=== PATIENT | male | born 1940 | race Caucasian/White ===

== ENCOUNTER 2018-04-04 16:40 | Inpatient (IN) | payer OTHER, MEDICAID ==
[~2018-04-04] VITALS: Ht 172.7 cm; Wt 70.3 kg
--- NOTE | 2018-04-04 17:15 | NUR ---
PT SENT BY DR. SANTIAGO, POSS UTI SYMPTOMS. LIVES IN ASSISTED LIVING, PT IS AAOX4, NOT IN RESPIRATORY DISTRESS, V/S STABLE, KEPT RESTED AND COMFORTABLE.
--- NOTE | 2018-04-04 17:50 | NUR ---
PT LABS DRAWNED, URINE COLLECTED AND SENT TO LAB. AWAITING RESULTS.
[2018-04-04 18:06] LABS: APPEARANCE,URINE Clear (CLEAR); BILIRUBIN,URINE Negative (NEGATIVE); BLOOD, URINE Negative Ery/uL (NEGATIVE); COLOR,URINE Yellow (YELLOW); KETONES,URINE 15 (NEGATIVE); LEUKOCYTE ESTERASE ,URINE Negative (NEGATIVE); NITRITE, URINE Negative (NEGATIVE); PROTEIN,URINE Trace mg/dl (NEGATIVE); UGLUCOSE Negative (NEGATIVE)
[2018-04-04 18:06] LABS: BASOPHILS # (AUTO) 0.1 /CMM (0.0-0.2); BASOPHILS % (AUTO) 1.1 % (0.0-2.0); EOSINOPHILS % (AUTO) 9.6 % (0.0-6.0); HEMATOCRIT 34 % (39-51); HEMOGLOBIN 11.3 g/dL (13.5-17.5); LYMPHOCYTES # (AUTO) 1.2 /CMM (0.8-4.8); LYMPHOCYTES % (AUTO) 22.9 % (20.0-44.0); MEAN CORPUSCULAR HGB CONC 33 g/dl (31.0-36.0); MEAN CORPUSCULAR VOLUME 96 fL (80-96); MONOCYTES # (AUTO) 0.6 /CMM (0.1-1.30); MONOCYTES % (AUTO) 11.5 % (2.0-12.0); NEUTROPHILS # (AUTO) 2.9 /CMM (1.8-8.9); NEUTROPHILS % (AUTO) 54.9 % (43.0-81.0); PLATELET COUNT (AUTO) 193 /CMM (150-450); RED BLOOD CELL COUNT(AUTO) 3.54 MIL/uL (4.5-6.0); WHITE BLOOD COUNT (AUTO) 5.3 K/uL (4.3-11.0)
--- NOTE | 2018-04-04 18:07 | NUR ---
RADIOLOGY AT BEDSIDE FOR XRAY.
[2018-04-04 18:19] LABS: CALCIUM, SERUM 8.3 mg/dL (8.5-10.1); CARBON DIOXIDE 27 mmol/L (21-32); CHLORIDE 108 mmol/L (98-107); CREATININE 1.5 mg/dL (0.6-1.3); GLUCOSE 95 mg/dL (74-106); POTASSIUM 4.9 mmol/L (3.5-5.1); SODIUM SERUM 143 mmol/L (136-145); UREA NITROGEN, BLOOD 26 mg/dL (7-18)
[2018-04-04 18:22] LABS: ALANINE AMINOTRANSFERASE 15 U/L (12-78); ALKALINE PHOSPHATASE 145 U/L (46-116); ASPARTATE AMINOTRANSFERASE 14 U/L (15-37); BILIRUBIN,DIRECT 0.1 mg/dL (0.0-0.2); BILIRUBIN,TOTAL 0.4 mg/dL (0.2-1.0); TOTAL PROTEIN, SERUM 6.9 g/dL (6.4-8.2)
[2018-04-04] MEDS ORDERED: ASPIRIN 81 MG TAB.CHEW PO ONE (19:00)
[2018-04-04] MEDS ORDERED: ASPIRIN 81 MG TAB.CHEW ONE (19:04)
--- NOTE | 2018-04-04 19:06 | NUR ---
AWAITING FAMILY MEMBER FOR CAMPUS RECEPTIONIST.
--- NOTE | 2018-04-04 19:14 | NUR ---
PONY ROLL FINISHER AT BEDSIDE FOR EVAL.
--- NOTE | 2018-04-04 19:22 | NUR ---
ENDORSED TO CHAO COLE DEAN.
--- NOTE | 2018-04-04 19:22 | NUR ---
RECEIVED REPORT FROM MACARIO GUIDRY FOR DEAN
--- NOTE | 2018-04-04 19:44 | NUR ---
DR. GONZALES AT BEDSIDE WITH FAMILY TO DISCUSS CARE
[2018-04-04] MEDS ORDERED: LOSA50TA39 PO (20:58)
[2018-04-04] MEDS ORDERED: SENN-168 PO (20:58)
[2018-04-04] MEDS ORDERED: CARV3.122 PO (20:58)
[2018-04-04] MEDS ORDERED: FAMO20TA8 PO (20:58)
[2018-04-04] MEDS ORDERED: FLUO-120 PO (20:58)
[2018-04-04] MEDS ORDERED: CLOP75TA15 PO (20:58)
[2018-04-04] MEDS ORDERED: LEVO25TA7 GT (20:58)
[2018-04-04] MEDS ORDERED: ATOR80TA PO (20:58)
[2018-04-04] MEDS ORDERED: DIPH25PI2 IV (20:58)
[2018-04-04] MEDS ORDERED: ASPI-605 PO (20:58)
--- NOTE | 2018-04-04 21:51 | NUR ---
PT RESTING COMFORTABLY IN BED. VITAL SIGNS STABLE. PT STILL ON CONTINUOUS DEPUTY PROBATION OFFICER. WILL CONTINUE TO MONITOR
--- NOTE | 2018-04-04 23:48 | NUR ---
GAVE REPORT TO RUSSELL GUIDRY FOR DEAN
[2018-04-05] VITALS (8 sets, daily range): BP systolic 120–158; BP diastolic 51–69
--- NOTE | 2018-04-05 00:05 | NUR ---
TRANSFERRED PT PER [facility]S PROTOCOL
[2018-04-05] MEDS ORDERED: MORPHINE SULFATE INJ 2 MG/ML DISP.SYRIN IV PRN (01:00)
[2018-04-05] MEDS ORDERED: NITROGLYCERIN 0.4 MG/TAB BOTTLE SL PRN (01:00)
--- NOTE | 2018-04-05 01:00 | NUR ---
tele/rn notes RECEIVED PATIENT NEW ADMIT FROM ER ARRIVED ON A GURNEY. WITH FWW, WITH HEARING AID AND UPPER AND LOWER DENTURE, HEARING AID NOT PLACED ON, [place], CAN READ LIPS, BODY CHECK DONE , NOTED DISCOLORATION ON LEFT FOREARM, AND RIGHT HAND, WITH REDBESS ON SACRAL AREA. PHOTOGRAPHS TAKEN ON LFA AND RIGHT HAND AT THIS TIME, HEELS REDNESS, ELEVATE AND TOOK PICTURES, ON TELE MONITOR, APACING IN 68. B/P CHECK ELEVATE AT 1567/57, AFEBRILE, SKIN COOL TO TOUCH, TEMPERATURE AT 98.1, DENIES PAIN, PULSE AT 68. ON RA AT 98 % SATURATION, NOTED COUGHING OUT PHLEGM. ADMITTED TO R/O UTI, ALERT, ORIENTED X2, FORGETFUL, UNABLE TO REMEMBER RECENT EVENTS BUT ABLE TO STATE RECEIVED FLU AND PNA VACCINE. LIVES IN ASSISTED LIVING. SKIN DRY. BODY CHECK, BELONGINGS CHECK AND RECONCILED WITH BEHAVIORAL HEALTH PROFESSIONAL. MD ORDERS, HOME MEDS REPORTED.WILL MONITOR.
--- NOTE | 2018-04-05 01:01 | NUR ---
TELE/RN NOTES NO PAIN REPORTED OR OBSERVED, EKG REPORT RESULT LEFT BUNDLE BRANCH BLOCK, APACING, 72, WILL CONTINUE TO MONITOR, CHEST XRAY MILD LEFT ATELECTASIS ON LEFT LOWER LUNG.
--- NOTE | 2018-04-05 04:28 | NUR ---
TELE/RN NOTES PROVIDED WATER TO DRINK AND PUDDING FOR SNACK, PATIENT, VERBALIZED FEELING HUNGRYA ND THIRSTY
--- NOTE | 2018-04-05 06:32 | NUR ---
328-1 TELE/RN NOTES PATIENT ABLE TO VERBALIZE NEEDS, RESPIRATIONS EVEN AND UNLABORED, NO PAIN REPORTED, SLEPT INTERMITENTLY,CALLLIGHTSA WITHI REACH, BED LOCKED, WILL MONITOR.
--- NOTE | 2018-04-05 07:20 | NUR ---
GARNISHMENT SPECIALIST OPENING NOTES PT AWAKE A/O X3 , RESPIRATIONS EVEN AND UNLABORED ON ROOM AIR , NO CHEST PAIN REPORTED, ON MONITOR: A PACING WITH HR 62. CALL LIGHT WITHIN REACH, BED LOCKED, WILL CONTINUE TO MONITOR.
[2018-04-05] MEDS ORDERED: LEVOTHYROXINE SODIUM 25 MCG TABLET GT SCH (07:30)
[2018-04-05] MEDS: LOSARTAN POTASSIUM 50 MG TABLET PO SCH (08:13)
[2018-04-05] MEDS: ASPIRIN EC 81 MG TABLET.DR PO SCH (08:13)
[2018-04-05] MEDS: CLOPIDOGREL BISULFATE 75 MG TABLET PO SCH (08:13)
[2018-04-05] MEDS: CARVEDILOL 3.125 MG TABLET PO SCH ×2 (08:14→17:45)
[2018-04-05] MEDS: FLUOXETINE HCL 20 MG CAPSULE PO SCH (08:14)
--- NOTE | 2018-04-05 15:00 | NUR ---
PT PULLED OUT IV . PT HAS NO IV FLUIDS /MEDS. MADE AWARE DR. SAGE. PER OK TO HAVE THIS PATIENT WITH NO IV ACCESS
--- NOTE | 2018-04-05 19:37 | NUR ---
PT AWAKE A/O X3 , RESPIRATIONS EVEN AND UNLABORED ON ROOM AIR , NO CHEST PAIN REPORTED, ON MONITOR: A PACING WITH HR 62-65.ALL NEEDS ATTENDED. CALL LIGHT WITHIN REACH, BED LOCKED AND LOWEST POSITION. WILL ENDORSE TO NEXT SHIFT FOR DEAN.
--- NOTE | 2018-04-05 19:45 | NUR ---
POWERHOUSE LABORER NOTES RECEIVED ON BED WITH HOB ELEVATED.WITH HARD OF HEARING ON BOTH EARS,WITH HEARING AID X2.NO IV ACCESS,OK WITH MD PER REPORT BY DAY NURSE JURGEN.NOTED SKIN DISCOLORATION ON RIGHT HAND.DENIES CHEST PAIN.CALL LIGHT IN REACH,NEEDS ANTICIPATED.
[2018-04-06] VITALS (7 sets, daily range): BP systolic 73–154; BP diastolic 40–72
--- NOTE | 2018-04-06 01:00 | NUR ---
DIFFUSION FURNACE OPERATOR NOTES SLEEPING,KEPT WARM AND COMFORTABLE.
--- NOTE | 2018-04-06 05:13 | NUR ---
BI LEAD NOTES REFUSED BLOOD PRESSURE CHECK ON STANDING POSITION.
--- NOTE | 2018-04-06 06:20 | NUR ---
AUTO BODY MECHANIC NOTES A-PACING 67 ON TELE MONITOR,SLEPT THRU OUT SHIFT.NO CHEST PAIN,URINE FOR ANALYSIS COLLECTED,SENT TO LAB.STILL NO IV ACCESS.CALL LIGHT IN REACH,NEEDS ATTENDED,IN NO ACUTE DISTRESS.WILL ENDORSE TO DAY NURSE FOR DEAN.
[2018-04-06 06:25] LABS: BASOPHILS # (AUTO) 0.1 /CMM (0.0-0.2); BASOPHILS % (AUTO) 1.2 % (0.0-2.0); HEMATOCRIT 35 % (39-51); HEMOGLOBIN 11.5 g/dL (13.5-17.5); LYMPHOCYTES # (AUTO) 1.3 /CMM (0.8-4.8); LYMPHOCYTES % (AUTO) 20.6 % (20.0-44.0); MEAN CORPUSCULAR HGB CONC 34 g/dl (31.0-36.0); MEAN CORPUSCULAR VOLUME 94 fL (80-96); MONOCYTES # (AUTO) 0.7 /CMM (0.1-1.30); MONOCYTES % (AUTO) 11.1 % (2.0-12.0); NEUTROPHILS # (AUTO) 3.4 /CMM (1.8-8.9); NEUTROPHILS % (AUTO) 56.1 % (43.0-81.0); PLATELET COUNT (AUTO) 189 /CMM (150-450); RED BLOOD CELL COUNT(AUTO) 3.67 MIL/uL (4.5-6.0); WHITE BLOOD COUNT (AUTO) 6.1 K/uL (4.3-11.0)
[2018-04-06 06:36] LABS: CHOLESTEROL 129 mg/dL (<200); HDL CHOLESTEROL 51 mg/dL (40-60); LDL 71 mg/dL (0-99); TRIGLYCERIDES 64 mg/dL (30-150)
--- NOTE | 2018-04-06 06:39 | NUR ---
CYCLING INSTRUCTOR NOTES NEW SALINE LOCK PLACE ON RFA #22.
[2018-04-06 06:47] LABS: CALCIUM, SERUM 8.5 mg/dL (8.5-10.1); CARBON DIOXIDE 26 mmol/L (21-32); CHLORIDE 108 mmol/L (98-107); CREATININE 1.3 mg/dL (0.6-1.3); GLUCOSE 93 mg/dL (74-106); MAGNESIUM 1.9 mg/dL (1.8-2.4); PHOSPHORUS 3.7 mg/dL (2.5-4.9); POTASSIUM 4.9 mmol/L (3.5-5.1); SODIUM SERUM 141 mmol/L (136-145); UREA NITROGEN, BLOOD 25 mg/dL (7-18)
--- NOTE | 2018-04-06 07:40 | NUR ---
DRILL FOREMAN OPENING NOTES RECEIVED PT FROM NIGHTSHIFT RN IN STABLE CONDITION. PT IS A/O X3. NO SOB OR ACUTE SIGNS OF DISTRESS NOTED. BREATHING IS EVEN AND UNLABORED. PT ON RA AND SATING WELL. HE DENIES ANY PAIN AT THIS TIME. NO REPORTS OF CHEST PAIN NOTED. PT IS CURRENTLY A-PACING ON THE TELE MONITOR WITH A CURRENT HR OF 71. IV TO RIGHT FA NOTED TO BE PATENT AND INTACT. NO REDNESS OR SIGNS OF INFILTRATION NOTED. BED IN LOW LOCKED POSITION, SIDE RAILS UP X2, CALL LIGHT WITHIN REACH. WILL CONTINUE TO MONITOR
[2018-04-06 07:49] LABS: CREATININE, URINE 34.2 MG/DL (30.0-125.0)
[2018-04-06] MEDS: LEVOTHYROXINE SODIUM 25 MCG TABLET PO SCH (09:23)
[2018-04-06] MEDS: CLOPIDOGREL BISULFATE 75 MG TABLET PO SCH (09:23)
[2018-04-06] MEDS: FLUOXETINE HCL 20 MG CAPSULE PO SCH (09:23)
[2018-04-06] MEDS: LOSARTAN POTASSIUM 50 MG TABLET PO SCH (09:23)
[2018-04-06] MEDS: CARVEDILOL 3.125 MG TABLET PO SCH ×2 (09:24→17:00)
[2018-04-06] MEDS: ASPIRIN EC 81 MG TABLET.DR PO SCH (09:24)
--- NOTE | 2018-04-06 16:17 | NUR ---
MS RN NOTES: ORTHOSTATIC BP PT'S ORTHOSTATIC BP ARE FOLLOWED SUPINE: 123/48 SITTIN/44 STANDIN/40 DR SAGE NOTIFIED OF RESULTS AND GAVE A TELEPHONE ORDER TO HOLD D/C AND INFUSE THE PT WITH 2L NS EACH AT 100ML/HR AND RECHECK ORTHOSTATICS AFTER THE SECOND BAG. WILL BEGIN INFUSION AND ENDORSE TO NIGHTSHIFT TO INFUSE SECOND BAG AND CHECK ORTHOSTATICS
[2018-04-06] MEDS: IV NS 0.9% 1,000 ML IV PRN (17:18)
--- NOTE | 2018-04-06 18:57 | NUR ---
MS RN CLOSING NOTES PT STABLE AT THIS TIME. ALL NEEDS ANTICIPATED FOR THROUGHOUT SHIFT. ALL DUE MEDS GIVEN. HE DENIES ANY DIZZINESS AT THIS TIME . IV REMAINS PATENT AND INTACT. PT TOLERATING 1ST BAG OF NS WELL. SAFETY MEASURES REMAIN IN PLACE. WILL ENDORSE TO NIGHTSHIFT RN FOR DEAN
--- NOTE | 2018-04-06 19:30 | NUR ---
RECEIVED PATIENT IN BED WITH EYES CLOSED, EASILY AROUSABLE. AO X 2, ABLE TO MAKE NEEDS KNOWN. NO ACUTE DISTRESS NOTED. DENIES ANY PAIN AT THIS TIME. IV SITE PATENT, INTACT; IVF INFUSING ORDERED. SAFETY REMINDERS GIVEN. ON LOW BED WITH BILATERAL UPPER SIDE RAILS UP. CALL MURPHY WITHIN EASY REACH. WILL CONTINUE TO MONITOR.
--- NOTE | 2018-04-07 01:38 | NUR ---
REPORT GIVEN TO NELLY GUIDRY FOR CONTINUITY OF CARE.
--- NOTE | 2018-04-07 01:40 | NUR ---
RECEIVED REPORT FORM RVI, PT STABLE, WILL CONTINUE TO MONITOR
[2018-04-07] MEDS: IV NS 0.9% 1,000 ML IV PRN (03:26)
--- NOTE | 2018-04-07 06:40 | NUR ---
RN MS CLOSING NOTES PT REMAINS IN BED, SLEEPING, EASILY AROUSED TO TOUCH, BREATHING EVEN AND UNLABORED ON RA, NO SOB NOTED. NO COMPLAINT OF PAIN OR DISCOMFORT AT THE TIME. IV ACCESS ON THE R FA#22G WITH NS @100ML/HR. BED IN LOWEST LOCKED POSITION, CALL LIGHT WITHIN REACH AT ALL TIMES, WILL ENDORSE TO DAY NURSE FOR DEAN
--- NOTE | 2018-04-07 07:30 | NUR ---
MS RN OPENING NOTES RECEIVED PT FROM NIGHTSHIFT RN IN STABLE CONDITION. PT IS A/O X3. NO SOB OR ACUTE SIGNS OF DISTRESS NOTED. BREATHING IS EVEN AND UNLABORED. PT ON RA AND SATING WELL. HE DENIES ANY PAIN AT THIS TIME. NO REPORTS OF CHEST PAIN NOTED. IV TO RIGHT FA NOTED TO BE PATENT AND INTACT. NO REDNESS OR SIGNS OF INFILTRATION NOTED. PT TOLERATING SECOND BAG OF NS WELL. WILL RECHECK ORTHOSTATIC BPs DIRECTED BY MD ONCE INFUSION IS COMPLETE. BED IN LOW LOCKED POSITION, SIDE RAILS UP X2, CALL LIGHT WITHIN REACH. WILL CONTINUE TO MONITOR
[2018-04-07 08:00] VITALS: BP 166/79
--- NOTE | 2018-04-07 08:23 | NUR ---
MS RN NOTES: DR SUNSHINE UPDATE/ NEW ORDER UPDATED ON PT'S ORTHOSTATIC BP FROM YESTERDAY AND ORDERS TO INFUSE 2L OF NS. MADE AWARE THAT THE SECOND BAG IS CURRENTLY INFUSING AND WILL RUN FOR THE NEXT 5 HRS. VERBAL ORDERS OBTAINED FROM TO D/C PT'S CARVEDILOL AND CHANGE PT'S COZAAR TO HS RATHER THAN DAILY. ORDERS CARRIED OUT ACCORDINGLY
[2018-04-07] MEDS: ASPIRIN EC 81 MG TABLET.DR PO SCH (08:48)
[2018-04-07] MEDS: FLUOXETINE HCL 20 MG CAPSULE PO SCH (08:49)
[2018-04-07] MEDS: CLOPIDOGREL BISULFATE 75 MG TABLET PO SCH (08:49)
[2018-04-07] MEDS: LEVOTHYROXINE SODIUM 25 MCG TABLET PO SCH (08:49)
--- NOTE | 2018-04-07 15:23 | NUR ---
MS RN NOTES: PLACEMENT F/U PT REFUSING TO GO BACK TO BOARD AND CARE AND STATES THAT HE WOULD RATHER BE PLACED IN A SNF. XIANG THE SOFTBALL UMPIRE MADE AWARE AND STATES THAT PT DOES NOT QUALIFY FOR SNF. AN [facility]DEP[facility] FACILITY WAS ARRANGED BY [facility] FOR THE PT TO GO TO. PT'S SON NOTIFIED BY CM AND MADE AWARE. THE FACILITY IS UNABLE TO ACCEPT THE PT UNTIL TOMORROW AND THEREFOR THE PT WILL STAY ANOTHER NIGHT
[2018-04-07 16:00] VITALS: BP_SYST 141; BP_SYST 150; BP_SYST 156; BP_DIAS 54; BP_DIAS 56; BP_DIAS 64
--- NOTE | 2018-04-07 16:00 | NUR ---
MS NR NOTES: ORTHOSTATIC BP SUPINE 150/64 HR 62 SITTING 156/54 HR 69 STANDING 141/56 HR 77
--- NOTE | 2018-04-07 18:52 | NUR ---
MS RN CLOSING NOTES PT STABLE AT THIS TIME. ALL NEEDS ANTICIPATED FOR THROUGHOUT SHIFT. ALL DUE MEDS GIVEN. HE DENIES ANY DIZZINESS AT THIS TIME . IV REMAINS PATENT AND INTACT. SAFETY MEASURES REMAIN IN PLACE. WILL ENDORSE TO NIGHTSHIFT RN FOR DEAN
--- NOTE | 2018-04-07 19:22 | NUR ---
RN MS OPENING NOTES RECEIVED PT IN BED, SLEEPING, HARD OF HEARING, EASILY AROUSED TO TOUCH, BREATHING EVEN AND UNLABORED ON RA, NO SOB NOTED. NO COMPLAINT OF PAIN OR DISCOMFORT AT THE TIME. IV ACCESS ON THE R FA#22G WITH NS @100ML/HR. BED IN LOWEST LOCKED POSITION, CALL LIGHT WITHIN REACH AT ALL TIMES, WILL CONTINUE TO MONITOR
[2018-04-07 20:00] VITALS: BP 155/50
[2018-04-07] MEDS: LOSARTAN POTASSIUM 50 MG TABLET PO SCH (21:01)
--- NOTE | 2018-04-08 06:10 | NUR ---
RN MS CLOSING NOTES PT REMAINS IN BED, SLEEPING, EASILY AROUSED TO TOUCH, HARD OF HEARING, BREATHING EVEN AND UNLABORED ON RA, NO SOB NOTED. NO COMPLAINT OF PAIN OR DISCOMFORT AT THE TIME. IV ACCESS ON THE R FA#22G SL. BED IN LOWEST LOCKED POSITION, CALL LIGHT WITHIN REACH AT ALL TIMES, AWAITING OFFICIAL PLACEMENT TO [facility], WILL ENDORSE TO DAY NURSE FOR DEAN
--- NOTE | 2018-04-08 07:32 | NUR ---
MS RN OPENING NOTES RECEIVED PATIENT IN STABLE CONDITION. IN NO APPARENT DISTRESS. BEDSIDE RAILS ARE UPX2. BED IS LOCKED AND LOWERED. CALL LIGHT IS WITHIN REACH. IV LINE IS INTACT AND PATENT. CALL LIGHT IS WITHIN REACH. WILL CONTINUE TO MONITOR PATIENT.
[2018-04-08 08:00] VITALS: BP 143/74
[2018-04-08] MEDS: LEVOTHYROXINE SODIUM 25 MCG TABLET PO SCH (08:38)
[2018-04-08] MEDS: FLUOXETINE HCL 20 MG CAPSULE PO SCH (08:38)
[2018-04-08] MEDS: CLOPIDOGREL BISULFATE 75 MG TABLET PO SCH (08:38)
[2018-04-08] MEDS: ASPIRIN EC 81 MG TABLET.DR PO SCH (08:38)
[2018-04-08 16:00] VITALS: BP_SYST 110; BP_SYST 98; BP_DIAS 52; BP_DIAS 57
--- NOTE | 2018-04-08 18:26 | NUR ---
MS RN CLOSING NOTES PATIENT IS IN STABLE CONDITION. IN NO APPARENT DISTRESS. BEDSIDE RAILS ARE UPX2. BED IS LOCKED AND LOWERED. CALL LIGHT IS WITHIN REACH. IV LINE IS INTACT AND PATENT. ALL NEEDS WERE MET. WILL ENDORSE CARE TO TRANSPORTATION MAINTENANCE WORKER NURSE FOR DEAN.
--- NOTE | 2018-04-08 19:20 | NUR ---
RN NOTES RECEIVED PT IN BED, ASLEEP BUT EASILY AROUSABLE, IN NO DISTRESS AT THIS TIME, NO C/O PAIN OR DISCOMFORT. ALL PATIENT'S NEEDS ATTENDED TO, PLACED CALL LIGHT WITHIN EASY REACH, BED IN LOW POSITION AND LOCKED IN PLACE. WILL CONTINUE TO MONITOR PT.
[2018-04-08 20:00] VITALS: BP 132/62
[2018-04-08] MEDS: LOSARTAN POTASSIUM 50 MG TABLET PO SCH (21:24)
--- NOTE | 2018-04-09 06:26 | NUR ---
RN CLOSING NOTES PT IN BED, SALEPT WELL THROUGOUT THE. PT IS ALERT AND ORIENTED X 3, VERBALLY RESPONSIVE. ALL PATIENT'S NEEDS ATTENDED TO THROUGHOUT THE SHIFT, NO INCIDENT OF FALL IN THIS SHIFT, NO C/O CHEST PAIN, DENIES ANY DISCOMFORT AT THIS TIME. KEPT PT SAFE AND DRY, CLEAN AND COMFORTABLE. PLACEDCALL LIGHT WITHIN EASY REACH. WILL ENDORSE TO AM SHIFT NURSE FOR CONTINUITY OF CARE.
[2018-04-09] MEDS: LEVOTHYROXINE SODIUM 25 MCG TABLET PO SCH (06:46)
--- NOTE | 2018-04-09 07:35 | NUR ---
MS/RN Patient received Patient received from caustic cresylate shift superintendent. Sleeping soundly at this time, appears in no distress or discomfort. Call light within reach, side rails X3 in upright position. Will continue to monitor and ensure safety.
[2018-04-09 08:00] VITALS: BP_SYST 154; BP_SYST 156; BP_DIAS 57
[2018-04-09] MEDS: FLUOXETINE HCL 20 MG CAPSULE PO SCH (08:19)
[2018-04-09] MEDS: CLOPIDOGREL BISULFATE 75 MG TABLET PO SCH (08:19)
[2018-04-09] MEDS: ASPIRIN EC 81 MG TABLET.DR PO SCH (08:19)
--- NOTE | 2018-04-09 09:15 | NUR ---
MS/RN Medications Morning medications administered as ordered, no problems swallowing.
--- NOTE | 2018-04-09 13:30 | NUR ---
MS/RN PT Seen by PT - patient able to ambulate using walker with minimal assist.
--- NOTE | 2018-04-09 15:59 | NUR ---
MS/RN S/B Dr Lopez Seen by Dr Lopez - patient for discharge tomorrow to board and care ([facility] or [facility]).
[2018-04-09 16:00] VITALS: BP 122/52
[2018-04-09] MEDS ORDERED: MAGNESIUM HYDROXIDE 30 ML UDC PO PRN (16:30)
--- NOTE | 2018-04-09 18:20 | NUR ---
MS/management liaison Call received from Layne case technician stating that a professional healthcare representative from [facility] and [facility] would be here to see patient at 6:30p. Asked case technician if this was just to evaluate patient but informed that this would be to discharge patient, thus only giving 10 minutes for patient to be preparded for discharge.
--- NOTE | 2018-04-09 19:00 | NUR ---
MS/metal fabricating supervisor Exit care prepared and printed, copies made of medical record and given to [facility] staff. Heplock and name bands removed. Patient refused to have discharge pictures taken, upset that he was being rushed into leaving and feels that he was not given enough time to prepare himself. All personal belongings returned to patient and signed for on belongings list. Report of medications administered today given to staff. Helped to wheelchair, escorted to main lobby.
== END 2018-04-09 19:08 | disposition home or self-care (01) | DRG 280 ==
LOC: ER 16:43 → TELE1 23:31 → TELE 23:34 → MED 04-06 14:26
DX: I21.4 Non-ST elevation (NSTEMI) myocardial infarction (principal); N17.0 Acute kidney failure with tubular necrosis; I50.32 Chronic diastolic (congestive) heart failure; I69.354 Hemiplegia and hemiparesis following cerebral infarction affecting left non-dominant side; I95.1 Orthostatic hypotension; I25.10 Atherosclerotic heart disease of native coronary artery without angina pectoris; R62.7 Adult failure to thrive; I11.0 Hypertensive heart disease with heart failure; I35.0 Nonrheumatic aortic (valve) stenosis; Z95.1 Presence of aortocoronary bypass graft; Z95.2 Presence of prosthetic heart valve; Z95.0 Presence of cardiac pacemaker; E03.9 Hypothyroidism, unspecified; E86.0 Dehydration; I44.7 Left bundle-branch block, unspecified; I25.2 Old myocardial infarction; Z87.891 Personal history of nicotine dependence; R32 Unspecified urinary incontinence
CPT/HCPCS: 36415; 71045-TC; 76770-TC; 80048-TC; 80061-TC; 80076-TC; 81000-TC; 82570-TC; 83605-TC; 83735-TC; 84100-TC; 84300-TC; 84484-TC; 85025-TC; 85730-TC; 87040-TC; 87081-TC; 87086-TC; 93307-TC; G0378; J7030